=== PATIENT | female | born 1930 | race Caucasian/White ===

== ENCOUNTER 2017-02-07 20:02 | Emergency (ER) | payer MEDICARE, BC ==
[~2017-02-07] VITALS: Ht 170.2 cm; Wt 81.8 kg
[~2017-02-07 20:02] MED LIST: ABILIFY2 MG PO; ACID CONTROLLER20 MG PO; ADVAIR DISK1; ARICEPT10 MG PO; BACTROBAN2 % EX; CALCI23 PO; CELEXA20 MG PO; COREG6.25 MG PO; DONEPEZIL5 MG PO; EQ OMEPRAZOLE M20 MG PO; FAMOTIDINE20 M1 PO; FLUOXETINE HCL20 MG PO; FLUOXETINE10 M2 PO; FLUOXETINE40 MG PO; LEVOTHYROXIN50 MC1 PO; LEVOTHYROXIN50 MCG PO; LOPRESSOR50 M1 PO; LOPRESSOR50 MG PO; LOSARTAN POT25 MG PO; LOVASTATIN40 M1 PO; METFORMIN500 MG PO; METOPROL TAR25 MG PO; MUPIROCIN2 % TOP; NAMENDA10 MG PO; NAMENDA5 MG PO; NEBULIZER; NORCO1 TA2 PO; PRAVACHOL20 MG PO; SEROQUEL25 MG PO; SEROQUEL50 MG PO; SPIRIVA HANDIHALER IN; THEOPHYLLINE S300 MG PO; TRAZODONE50 MG PO; XANAX0.25 MG PO; [UNRECOGNIZED DRUG - OTHER]
[2017-02-07] MEDS ORDERED: ATORVASTATIN CA40 MG PO (20:17)
[2017-02-07] MEDS ORDERED: PEPCID20 MG PO (20:18)
[2017-02-07] MEDS ORDERED: XALATAN0.005 % OU (20:18)
[2017-02-07] MEDS ORDERED: REMERON15 MG PO (20:19)
[2017-02-07] MEDS ORDERED: OLANZAPINE5 MG PO (20:20)
[2017-02-07] MEDS ORDERED: ARTIFI TEAR1 OU (20:23)
[2017-02-07] MEDS ORDERED: DULERA1 AE1 IN (20:23)
[2017-02-07] MEDS ORDERED: DEPAKOTE250 MG PO (20:25)
[2017-02-07] MEDS ORDERED: ACETAMIN325 MG PO (20:26)
[2017-02-07] MEDS ORDERED: MILK OF MAG30 ML/UDC PO (20:27)
[2017-02-07 20:49] LABS: URINE BILIRUBIN - DIPSTICK NEGATIVE (NEGATIVE); URINE BLOOD DIPSTICK LARGE (NEGATIVE); URINE COLOR YELLOW; URINE GLUCOSE - DIPSTICK NEGATIVE (NEGATIVE); URINE KETONE TRACE mg/dL (NEGATIVE); URINE LEUK ESTERASE TRACE (NEGATIVE); URINE NITRITE - DIPSTICK NEGATIVE (Negative); URINE PROTEIN - DIPSTICK TRACE mg/dL (NEG-TRACE); URINE UROBILINOGEN - DIPSTICK 0.2 E.U./dL (0.2)
[2017-02-07 20:50] LABS: URINE CLARITY TURBID
[2017-02-07 20:52] LABS: HEMATOCRIT 37.3 % (37.0-47.0); IMMATURE GRANULOCYTES 0.2 % (0.0-1.0); MEAN CELL VOLUME 86.5 fL CALC (80.0-100.0); MEAN CORPUSCULAR HGB 27.8 pG CALC (26.0-32.0); MEAN CORPUSCULAR HGB CONC 32.2 g/L CALC (32.0-36.0); NEUT# 3.09 thou/uL (2.00-7.15); RED BLOOD COUNT 4.31 mill/uL (4.20-5.60); RED CELL DISTRI WIDTH 13.9 % (11.5-15.5)
[2017-02-07 20:59] LABS: URINE RBC TNTC RBC/hpf (0-5); URINE SQUAMOUS EPITHELIAL CELL FEW EPI/hpf (0-FEW)
[2017-02-07 21:03] LABS: ALKALINE PHOSPHATASE 64 u/l (38-126); ANION GAP 17 (6-22 (CALC)); BILIRUBIN, TOTAL 0.2 mg/dL (0.0-1.4); BUN 29 mg/dL (8-23); BUN/CREATININE RATIO 34 (12-20 (CALC)); CALCIUM 9.4 mg/dL (8.4-10.2); CARBON DIOXIDE 24 mmol/l (22-30); CHLORIDE 105 mmol/l (95-108); CREATININE 0.9 mg/dL (0.5-1.0); GFR 60 ML/MIN (>=60 (CALC)); GFR FOR AFR.AMER. > 60 ML/MIN (>=60 (CALC)); GLUCOSE 98 mg/dL (82-115); POTASSIUM 4.4 mmol/l (3.5-5.1); SGOT/AST 22 u/l (9-36); SGPT/ALT 30 u/l (11-66); SODIUM 142 mmol/l (137-146); TOTAL PROTEIN 6.7 g/dL (6.3-8.2)
[2017-02-07] MEDS ORDERED: BACTRIM DS1 TAB PO (21:35)
[2017-02-07 22:33] VITALS: BP 161/73
== END 2017-02-07 22:23 ==
LOC: ED 20:02
PROVIDERS: Emergency Medicine
PROC: 0T9B70Z Drainage of Bladder with Drainage Device, Via Natural or Artificial Opening (ICD-10-PCS; principal; 2017-02-07)
DX: N39.0 Urinary tract infection, site not specified (principal); R31.9 Hematuria, unspecified; R10.2 Pelvic and perineal pain; W01.0XXA Fall on same level from slipping, tripping and stumbling without subsequent striking against object, initial encounter; Y92.129 Unspecified place in nursing home as the place of occurrence of the external cause